=== PATIENT | female | born 1950 | race Caucasian/White ===

== ENCOUNTER 2023-05-13 15:56 | Emergency (ER) | payer OTHER ==
[2023-05-13 16:11] VITALS: BP 135/49; PULSE 64; RESP 18; TEMP 98.7; BMI 23.3
[2023-05-13] MEDS ORDERED: ACETAMINOPHEN 1000 MG/100 ML BAG IVPB ONE (16:30)
[2023-05-13] MEDS ORDERED: LACTATED RINGERS SOLUTION 1000 ML INFUS.BAG IV ONE (16:30)
[2023-05-13] MEDS ORDERED: ACETAMINOPHEN INJECTION 100 ML IVPB ONE (17:01)
[2023-05-13 17:06] LABS: HEMATOCRIT 33.9 % (32.4-45.2); HEMOGLOBIN 11.6 G/dL (10.7-15.3); MCH 31.2 pg (25.7-33.7); MCHC 34.2 g/dl (32.0-36.0); MEAN CELL VOLUME 91.2 fl (80-96); MEAN PLT VOLUME 8.8 fl (7.5-11.1); PLATELET COUNT 240.9 10^3/uL (134-434); RBC 3.72 10^6/uL (3.60-5.2); RDW 14.4 % (11.6-15.6); WHITE BLOOD COUNT 6.6 10^3/uL (4.0-10.8)
[2023-05-13 17:27] LABS: PLATELET ESTIMATE ADEQUATE
[2023-05-13 17:28] LABS: BILIRUBIN,TOTAL 0.4 mg/dl (0.2-1); CREATININE 0.5 mg/dl (0.6-1.3); SGOT/AST 25.2 U/L (15-37); SGPT/ALT 18.2 U/L (7-52); TOT PROT 6.6 g/dl (6.4-8.2)
[2023-05-13 17:33] LABS: POTASSIUM 4.6 mmol/L (3.5-5.1)
== END 2023-05-13 18:55 | disposition home or self-care (01) ==
LOC: FER 15:56
PROC: 3E033NZ Introduction of Analgesics, Hypnotics, Sedatives into Peripheral Vein, Percutaneous Approach (ICD-10-PCS; principal; 2023-05-13)
DX: R00.2 Palpitations (principal); R51.9 Headache, unspecified; R07.2 Precordial pain; R45.7 State of emotional shock and stress, unspecified; R42 Dizziness and giddiness; Z20.822 Contact with and (suspected) exposure to COVID-19
CPT/HCPCS: 0241U-QW; 36415; 71045-TC-FY; 80053; 84484; 85027; 93005; 96374; 99285-25